=== PATIENT | female | born 1985 | race Caucasian/White ===

== ENCOUNTER 2021-12-29 17:23 | Emergency (ER) | payer MEDICAID ==
[~2021-12-29] VITALS: Ht 190.5 cm; Wt 82.0 kg
[2021-12-29] MEDS ORDERED: ACETAMINOPHEN 500MG TABLET PO ONE (21:30)
[2021-12-29 22:33] VITALS: BP 126/65
== END 2021-12-29 23:01 | disposition home or self-care (01) ==
LOC: ER 17:23
DX: R68.89 Other general symptoms and signs (principal); F12.10 Cannabis abuse, uncomplicated; Z98.890 Other specified postprocedural states
CPT/HCPCS: 74018; 99283